=== PATIENT | male | born 1950 | race Caucasian/White ===

== ENCOUNTER 2017-10-29 10:28 | Emergency (ER) | payer MEDICARE ==
[2017-10-29] MEDS ORDERED: ONDANSETRON ODT 4 MG TAB ONE (11:25)
[2017-10-29] MEDS ORDERED: ORPHENADRINE CITRATE 30 MG/ML ML ONE (11:25)
[2017-10-29] MEDS ORDERED: MORPHINE SULFATE 4 MG/1ML SYG ONE (11:26)
[2017-10-29 11:47] LABS: BASOPHILS % (AUTO) 0.3 % (0.0-5.0); EOSINOPHILS % (AUTO) 0.7 % (0.0-8.0); HEMATOCRIT 37.1 % (42-54); LYMPHOCYTES % (AUTO) 14.3 % (21.0-51.0); MEAN CORPUSCULAR HEMOGLOBIN 30.5 pg (27.0-33.0); MEAN CORPUSCULAR HGB CONC 33.8 g/dL (32.0-36.0); MEAN CORPUSCULAR VOLUME 90.2 fL (79-99); MONOCYTES % (AUTO) 8.1 % (3.0-13.0); NEUTROPHILS % (AUTO) 76.6 % (40.0-77.0); PLATELET COUNT (AUTO) 228 K/uL (130-400); RED BLOOD CELL COUNT(AUTO) 4.12 MIL/uL (4.50-6.20); RED CELL DISTRIBUTION WIDTH 12.9 % (11.0-15.5); WHITE BLOOD COUNT (AUTO) 6.3 K/uL (4.8-10.8)
[2017-10-29 12:05] LABS: CREATININE 1.5 mg/dL (0.5-1.5); POTASSIUM 3.9 mmol/L (3.5-5.1)
[2017-10-29 12:29] LABS: BILIRUBIN,URINE Negative (NEGATIVE); COLOR,URINE Yellow (YELLOW); GLUCOSE, URINE (UA) Negative (NEGATIVE); KETONES,URINE Trace mg/dL (NEGATIVE); LEUKOCYTE ESTERASE ,URINE Negative (NEGATIVE); NITRATE,URINE Negative (NEGATIVE); OCCULT BLOOD,URINE Negative (NEGATIVE); PROTEIN,URINE Negative (NEGATIVE)
[2017-10-29 12:35] LABS: APPEARANCE,URINE SLIGHTLY CLOUDY (CLEAR)
[2017-10-29] MEDS ORDERED: KETOROLAC TROMETHAMINE 30MG/ML ONE (13:18)
== END 2017-10-29 13:26 | disposition home or self-care (01) ==
LOC: EDH 10:28
DX: M48.061 Spinal stenosis, lumbar region without neurogenic claudication (principal); Z86.73 Personal history of transient ischemic attack (TIA), and cerebral infarction without residual deficits; Z88.2 Allergy status to sulfonamides; Z91.041 Radiographic dye allergy status
CPT/HCPCS: 36415; 74176; 80048; 81003; 85025; 96372 ×3; 99285; J1885; J2270; J2360